=== PATIENT | female | born 1990 | race Caucasian/White ===

== ENCOUNTER 2017-05-20 15:17 | Emergency (ER) | payer OTHER ==
[~2017-05-20] VITALS: Ht 162.6 cm; Wt 69.7 kg
[2017-05-20 16:08] VITALS: BP 136/105
== END 2017-05-20 16:09 | disposition home or self-care (01) ==
LOC: EME 15:17
DX: M62.830 Muscle spasm of back (principal); M54.6 Pain in thoracic spine; M54.2 Cervicalgia; M25.519 Pain in unspecified shoulder
CPT/HCPCS: 99281; 99283